=== PATIENT | male | born 1950 | race Caucasian/White ===

== ENCOUNTER 2020-04-12 14:24 | Inpatient (IN) | payer MEDICARE, OTHER ==
[2020-04-12] MEDS ORDERED: SODIUM CHLORIDE 0.9% 500 ML 500 ML IV STA (14:52)
[2020-04-12 15:05] LABS: Basophils # (A) 0.2 k/uL (0-0.2); Basophils % (A) 1 %; Eosinophils # (A) 0.1 k/uL (0-0.7); Eosinophils % (A) 1 %; HGB 17.9 gm/dL (13.0-17.5); Lymphocytes # (A) 4.1 k/uL (1.0-4.8); Lymphocytes % (A) 31 %; MCH 31.5 pg (25.0-35.0); MCHC 32.5 g/dL (31.0-37.0); MCV 96.9 fL (80.0-100.0); Monocytes # (A) 0.8 k/uL (0-1.0); Monocytes % (A) 6 %; Neutrophils # (A) 7.9 k/uL (1.3-7.7); Neutrophils % (A) 59 %; Platelet Count 233 k/uL (150-450); RBC 5.68 m/uL (4.30-5.90); RDW 14.3 % (11.5-15.5); WBC 13.3 k/uL (3.8-10.6)
[2020-04-12] MEDS ORDERED: SODIUM CHLORIDE 0.9% 1,000 ML IV STA (15:07)
--- NOTE | 2020-04-12 15:09 | ED ---
General Adult HPI - General Chief complaint: Nausea/Vomiting/Diarrhea Stated complaint: NVD Time Seen by Provider: 04/12/20 14:35 Source: patient, Caregiver Mode of arrival: wheelchair Limitations: no limitations - History of Present Illness Initial comments: Dictation was produced using [employer] dictation software. please excuse any gra mmatical, word or spelling errors. This patient was cared for during a federal and state declared state of emergency secondary to Covid 19 Chief Complaint: 69-year-old male brought in from [facility] for poor appetite, lethargy History of Present Illness: 69-year-old male who has past nuchal history of diabetes, dyslipidemia and hypertension. 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 Over the last 2-3 days patient has been worsening weakness, lethargy and refusing to take his medications. He is very poor appetite. He did complain of a couple of occasions of abdominal pain. Patient is a poor historian at this time however beauty operator apprentice reports that his usual baseline is interactive with meaningful conversation. When asked how he feels patient reports that he feels okay. The ROS documented in this emergency department record has been reviewed and confirmed by me. Those systems with pertinent positive or negative responses have been documented in the HPI. All other systems are other negative and/or noncontributory. PHYSICAL EXAM: General Impression: Alert and oriented x3, not in acute distress HEENT: Normocephalic atraumatic, extra-ocular movements intact, pupils equal and reactive to light bilaterally, dry mucous membranes Cardiovascular: tachycardia Chest: Able to complete full sentences, no retractions, no tachypnea, bilateral breath sounds that are clear Abdomen: abdomen soft, non-tender, non-distended, no organomegaly Musculoskeletal: Pulses present and equal in all extremities, no peripheral edema Motor: no focal deficits noted Neurological: CN II-XII grossly intact, no focal motor or sensory deficits noted Skin: Intact with no visualized rashes ED course: 69-year-old male presents today for poor appetite, nausea, vomiting, lethargy vital signs upon arrival shows heart rate of 130, rest of vital signs within acceptable limits. EKG shows heart rate 125. EKG shows sinus tachycardia, with ST depressions. KUB x-ray was performed showing no acute processes. Laboratory evaluation obtained. Leukocytosis of 13.3. Rest of CBC is unremarkable. Metabolic panel shows sodium of 148, glucose of 508. Elevated renal markers with a creatinine of 1.5 to and a BUN of 44. Lactic acidosis 3.1. Magnesium 2.4.Urinalysis was obtained showing no leukocyte in the urine. There is 4+ glucose, 2+ protein and 1+ ketones. Repeat lactic acid level was 1.8 after fluid administration. Consider patient's to be of symptoms and electrolyte abnormalities will have patient admitted for fluid hydration and medical monitoring. Case is discussed with Dr. Veloz who is willing to accept patients care. EKG interpretation: Ventricular rate 125, sinus tachycardia,. 142, QRS 80, QTc 464. No MT prolongation, no QTC prolongation. ST depressions in the high lateral leads - Related Data Home Medications Medication Instructions Recorded Confirmed Ammonium Lactate Cream [Lac-Hydrin 1 applic TOPICAL DAILY@119904/12/20 04/12/20 12% Cream] Artificial Tears-Hypromellose 1 - 2 drops BOTH EYES TID PRN 04/12/20 04/12/20 [Artificial Tear Drops] Aspirin EC [Ecotrin Low Dose] 81 mg PO DAILY@79904/12/20 04/12/20 Atorvastatin Calcium [Lipitor] 20 mg PO HS@199904/12/20 04/12/20 Carbidopa/Levodopa [Carbidopa-Levo 1 tab SUBLINGUAL BID@799,199904/12/20 04/12/20 25-250 mg Odt] Citalopram Hydrobromide [CeleXA] 20 mg PO DAILY@79904/12/20 04/12/20 Clotrimazole Topical Soln [Mycelex 2 drops TOPICAL HS@199904/12/20 04/12/20 Topical Soln] Cyanocobalamin (Vitamin B-12) 1,000 mcg PO DAILY@79904/12/20 04/12/20 [Vitamin B-12] Divalproex ER [Depakote ER] 1,000 mg PO BID@799,199904/12/20 04/12/20 Eucerin Cream 1 applic TOPICAL HS@199904/12/20 04/12/20 Furosemide [Lasix] 20 mg PO DAILY@1700 04/12/20 04/12/20 Furosemide [Lasix] 40 mg PO DAILY@79904/12/20 04/12/20 Gabapentin [Neurontin] 300 mg PO BID@0800,199904/12/20 04/12/20 HYDROcodone/APAP 5-325MG [[place] 1 tab PO TID PRN 04/12/20 04/12/20 5-325] HYDROcodone/APAP 5-325MG [[place] 1 tab PO TID@0800,1400,199904/12/20 04/12/20 5-325] Insulin Aspart Protam & Aspart 10 unit SQ BID@799,199904/12/20 04/12/20 [NovoLOG MIX 70-30 Flexpen] Ipratropium-Albuterol Nebulize 3 ml INHALATION RT-TID PRN 04/12/20 04/12/20 [Duoneb 0.5 mg-3 mg/3 ml Soln] LORazepam [Ativan] 0.5 mg PO TID@0800,1400,199904/12/20 04/12/20 Latanoprost/Pf [Latanoprost 0.005% 1 drop BOTH EYES HS@199904/12/20 04/12/20 Eye Drop] Loratadine [Claritin] 10 mg PO HS@199904/12/20 04/12/20 Multivitamins, Thera [Multivitamin 1 tab PO DAILY@79904/12/20 04/12/20 (formulary)] Naproxen [Naprosyn] 500 mg PO BID PRN 04/12/20 04/12/20 Pantoprazole [Protonix] 40 mg PO DAILY@79904/12/20 04/12/20 Prochlorperazine [Compazine] 10 mg PO BID PRN MDD 30-45MIN 04/12/20 04/12/20 PRIOR TO MEALS Sennosides/Docusate Sodium [Senna 2 tab PO HS@1999 PRN 04/12/20 04/12/20 Plus 8.6-50 mg Softgel] Sertraline HCl [Zoloft] 75 mg PO DAILY@79904/12/20 04/12/20 Sodium Chloride [Saline Nasal 1 spray EA NOSTRIL BID@0800,199904/12/20 04/12/20 [place]] Tamsulosin HCl [Flomax] 0.4 mg PO DAILY@79904/12/20 04/12/20 amLODIPine [Norvasc] 2.5 mg PO DAILY@79904/12/20 04/12/20 amantadine HCL [Amantadine] 100 mg PO DAILY@79904/12/20 04/12/20 glipiZIDE XL [Glucotrol Xl] 10 mg PO HS@199904/12/20 04/12/20 guaiFENesin [guaiFENesin Oral 200 mg PO Q4H PRN 04/12/20 04/12/20 Solution] metFORMIN HCL [Glucophage] 1,000 mg PO BID@799,199904/12/20 04/12/20 Allergies Allergy/AdvReac Type Severity Reaction Status Date / Time piperacillin [From Zosyn] Allergy Nausea & Verified 04/12/20 16:36 Vomiting tazobactam [From Zosyn] Allergy Nausea & Verified 04/12/20 16:36 Vomiting Review of Systems ROS Statement: Those systems with pertinent positive or pertinent negative responses have been documented in the HPI. ROS Other: All systems not noted in ROS Statement are negative. Past Medical History Past Medical History: Diabetes Mellitus, GERD/Reflux, Hyperlipidemia, Hypertension Additional Past Medical History / Comment(s): closed head injury, History of Any Multi-Drug Resistant Organisms: None Reported Past Surgical History: Unable to Obtain Smoking Status: Never smoker Past Alcohol Use History: None Reported Past Drug Use History: None Reported General Exam Limitations: no limitations Course Vital Signs 04/12/20 04/12/20 14:26 17:31 Temperature 97.6 F Pulse Rate 130 117 H Respiratory 18 20 Rate Blood Pressure 169/106 181/133 O2 Sat by Pulse 97 97 Oximetry Medical Decision Making - Lab Data Result diagrams: 04/12/20 14:54 04/12/20 14:54 Lab Results 04/12/20 04/12/20 04/12/20 Range/Units 14:54 14:54 14:54 WBC 13.3 H (3.8-10.6) k/uL RBC 5.68 (4.30-5.90) m/uL Hgb 17.9 H (13.0-17.5) gm/dL Hct 55.1 H (39.0-53.0) % MCV 96.9 (80.0-100.0) fL MCH 31.5 (25.0-35.0) pg MCHC 32.5 (31.0-37.0) g/dL RDW 14.3 (11.5-15.5) % Plt Count 233 (150-450) k/uL Neutrophils % 59 % Lymphocytes % 31 % Monocytes % 6 % Eosinophils % 1 % Basophils % 1 % Neutrophils # 7.9 H (1.3-7.7) k/uL Lymphocytes # 4.1 (1.0-4.8) k/uL Monocytes # 0.8 (0-1.0) k/uL Eosinophils # 0.1 (0-0.7) k/uL Basophils # 0.2 (0-0.2) k/uL Sodium 148 H (137-145) mmol/L Potassium 4.2 (3.5-5.1) mmol/L Chloride 105 (98-107) mmol/L Carbon Dioxide 28 (22-30) mmol/L Anion Gap 15 mmol/L BUN 44 H (9-20) mg/dL Creatinine 1.52 H (0.66-1.25) mg/dL Est GFR (CKD-EPI)AfAm 54 (>60 ml/min/1.73 sqM) Est GFR (CKD-EPI)NonAf 46 (>60 ml/min/1.73 sqM) Glucose 508 H* (74-99) mg/dL POC Glucose (mg/dL) (75-99) mg/dL POC Glu Data Processing Manager ID Lactic Ac Sepsis Rflx Plasma Lactic Acid Irineo 3.1 H* (0.7-2.0) mmol/L Calcium 10.3 H (8.4-10.2) mg/dL Magnesium 2.4 H (1.6-2.3) mg/dL Total Bilirubin 0.8 (0.2-1.3) mg/dL AST 21 (17-59) U/L ALT 15 (4-49) U/L Alkaline Phosphatase 124 (38-126) U/L Total Protein 8.3 H (6.3-8.2) g/dL Albumin 4.4 (3.5-5.0) g/dL Lipase 118 (23-300) U/L Urine Color Urine Appearance (Clear) Urine pH (5.0-8.0) Ur Specific [place] (1.001-1.035) Urine Protein (Negative) Urine Glucose (UA) (Negative) Urine Ketones (Negative) Urine Blood (Negative) Urine Nitrite (Negative) Urine Bilirubin (Negative) Urine Urobilinogen (<2.0) mg/dL Ur Leukocyte Esterase (Negative) Urine RBC (0-5) /hpf Urine WBC (0-5) /hpf Urine Bacteria (None) /hpf Urine Mucus (None) /hpf 04/12/20 04/12/20 04/12/20 Range/Units 15:03 15:19 16:41 WBC (3.8-10.6) k/uL RBC (4.30-5.90) m/uL Hgb (13.0-17.5) gm/dL Hct (39.0-53.0) % MCV (80.0-100.0) fL MCH (25.0-35.0) pg MCHC (31.0-37.0) g/dL RDW (11.5-15.5) % Plt Count (150-450) k/uL Neutrophils % % Lymphocytes % % Monocytes % % Eosinophils % % Basophils % % Neutrophils # (1.3-7.7) k/uL Lymphocytes # (1.0-4.8) k/uL Monocytes # (0-1.0) k/uL Eosinophils # (0-0.7) k/uL Basophils # (0-0.2) k/uL Sodium (137-145) mmol/L Potassium (3.5-5.1) mmol/L Chloride (98-107) mmol/L Carbon Dioxide (22-30) mmol/L Anion Gap mmol/L BUN (9-20) mg/dL Creatinine (0.66-1.25) mg/dL Est GFR (CKD-EPI)AfAm (>60 ml/min/1.73 sqM) Est GFR (CKD-EPI)NonAf (>60 ml/min/1.73 sqM) Glucose (74-99) mg/dL POC Glucose (mg/dL) 550 H (75-99) mg/dL POC Glu Data Processing Manager ID [place], Lisa Lactic Ac Sepsis Rflx Y Plasma Lactic Acid Irineo (0.7-2.0) mmol/L Calcium (8.4-10.2) mg/dL Magnesium (1.6-2.3) mg/dL Total Bilirubin (0.2-1.3) mg/dL AST (17-59) U/L ALT (4-49) U/L Alkaline Phosphatase (38-126) U/L Total Protein (6.3-8.2) g/dL Albumin (3.5-5.0) g/dL Lipase (23-300) U/L Urine Color Yellow Urine Appearance Clear (Clear) Urine pH 6.0 (5.0-8.0) Ur Specific [place] 1.020 (1.001-1.035) Urine Protein 2+ H (Negative) Urine Glucose (UA) 4+ H (Negative) Urine Ketones 1+ H (Negative) Urine Blood Small H (Negative) Urine Nitrite Negative (Negative) Urine Bilirubin Negative (Negative) Urine Urobilinogen <2.0 (<2.0) mg/dL Ur Leukocyte Esterase Negative (Negative) Urine RBC 1 (0-5) /hpf Urine WBC 1 (0-5) /hpf Urine Bacteria Rare H (None) /hpf Urine Mucus Rare H (None) /hpf 04/12/20 04/12/20 Range/Units 17:36 17:37 WBC (3.8-10.6) k/uL RBC (4.30-5.90) m/uL Hgb (13.0-17.5) gm/dL Hct (39.0-53.0) % MCV (80.0-100.0) fL MCH (25.0-35.0) pg MCHC (31.0-37.0) g/dL RDW (11.5-15.5) % Plt Count (150-450) k/uL Neutrophils % % Lymphocytes % % Monocytes % % Eosinophils % % Basophils % % Neutrophils # (1.3-7.7) k/uL Lymphocytes # (1.0-4.8) k/uL Monocytes # (0-1.0) k/uL Eosinophils # (0-0.7) k/uL Basophils # (0-0.2) k/uL Sodium (137-145) mmol/L Potassium (3.5-5.1) mmol/L Chloride (98-107) mmol/L Carbon Dioxide (22-30) mmol/L Anion Gap mmol/L BUN (9-20) mg/dL Creatinine (0.66-1.25) mg/dL Est GFR (CKD-EPI)AfAm (>60 ml/min/1.73 sqM) Est GFR (CKD-EPI)NonAf (>60 ml/min/1.73 sqM) Glucose (74-99) mg/dL POC Glucose (mg/dL) 410 H (75-99) mg/dL POC Glu Data Processing Manager ID Lisa Bledsoe Lactic Ac Sepsis Rflx Plasma Lactic Acid Irineo 1.8 (0.7-2.0) mmol/L Calcium (8.4-10.2) mg/dL Magnesium (1.6-2.3) mg/dL Total Bilirubin (0.2-1.3) mg/dL AST (17-59) U/L ALT (4-49) U/L Alkaline Phosphatase (38-126) U/L Total Protein (6.3-8.2) g/dL Albumin (3.5-5.0) g/dL Lipase (23-300) U/L Urine Color Urine Appearance (Clear) Urine pH (5.0-8.0) Ur Specific [place] (1.001-1.035) Urine Protein (Negative) Urine Glucose (UA) (Negative) Urine Ketones (Negative) Urine Blood (Negative) Urine Nitrite (Negative) Urine Bilirubin (Negative) Urine Urobilinogen (<2.0) mg/dL Ur Leukocyte Esterase (Negative) Urine RBC (0-5) /hpf Urine WBC (0-5) /hpf Urine Bacteria (None) /hpf Urine Mucus (None) /hpf Disposition Clinical Impression: Weakness, Dehydration Disposition: ADMITTED IP TO THIS [facility] Condition: Fair Referrals: Jay Salazar MD [Primary Care Provider] - 1-2 days Decision Time: 18:02
[2020-04-12 15:13] LABS: HCT 55.1 % (39.0-53.0)
[2020-04-12 15:16] LABS: Albumin 4.4 g/dL (3.5-5.0); Calcium 10.3 mg/dL (8.4-10.2); Magnesium 2.4 mg/dL (1.6-2.3); Potassium 4.2 mmol/L (3.5-5.1); Total Bilirubin 0.8 mg/dL (0.2-1.3); Total Protein 8.3 g/dL (6.3-8.2)
[2020-04-12 16:13] LABS: Glucose,Whole Blood 550 mg/dL (75-99)
--- NOTE | 2020-04-12 16:15 | XR ---
KUB HISTORY: Abdominal pain Frontal KUB submitted on 3 images Correlation to prior KUB 02/04/2019, CT 10/23/2017 There is no evident pneumoperitoneum or bowel obstruction. Lung bases are clear. There is an oval umer cification in the left upper quadrant as on prior exam and is stable and benign. Degenerative disc ch anges are present in the visualized spine. impression: Nonobstructive bowel gas pattern.
[2020-04-12 17:06] LABS: Appearance,Urine Clear (Clear); Bacteria,Urine Rare /hpf; Bilirubin,Urine Negative (Negative); Blood,Urine Small (Negative); Color,Urine Yellow; Glucose,Urine (UA) 4+ (Negative); Ketones,Urine 1+ (Negative); Leukocyte Esterase,Urine Negative (Negative); Mucus,Urine Rare /hpf; Nitrite,Urine Negative (Negative); Protein,Urine 2+ (Negative); RBC,Urine 1 /hpf (0-5); Urobilinogen,Urine <2.0 mg/dL (<2.0); WBC,Urine 1 /hpf (0-5)
[2020-04-12 17:39] LABS: Glucose,Whole Blood 410 mg/dL (75-99)
[2020-04-12] MEDS ORDERED: NALOXONE 0.4 MG/ML 1 ML VIAL IV PRN (17:59)
[2020-04-12] MEDS ORDERED: ONDANSETRON 4 MG/2 ML VIAL IVP PRN (17:59)
[2020-04-12] MEDS ORDERED: SODIUM CHLORIDE 0.9% 1,000 ML IV SCH (18:00)
[2020-04-12] MEDS ORDERED: INSULIN REGULAR 100 UNIT/ML VIAL IV ONE (19:23)
[2020-04-12] MEDS ORDERED: LABETALOL 5 MG/ML VIAL MDV IVP STA ×2 (19:35→20:09)
[2020-04-12 19:48] LABS: Glucose,Whole Blood 413 mg/dL (75-99)
[2020-04-12] MEDS ORDERED: NAPROXEN 250 MG TAB PO PRN (20:19)
[2020-04-12] MEDS ORDERED: SENNOSIDES-DOCUSATE SODIUM 1 EACH TAB PO PRN (20:19)
[2020-04-12] MEDS ORDERED: HYDROcodone/APAP 5-325MG 1 EACH TAB PO PRN (20:19)
[2020-04-12] MEDS ORDERED: guaiFENesin SYRUP 100MG/5ML 200 MG/10 ML CUP PO PRN (20:19)
[2020-04-12] MEDS ORDERED: ARTIFICIAL TEARS-HYPROMELLOSE DROPS 15 ML BTL BOTH EYES PRN (20:19)
[2020-04-12] MEDS ORDERED: PROCHLORPERAZINE 10 MG TAB PO PRN (20:19)
[2020-04-12] MEDS ORDERED: IPRATROPIUM-ALBUTEROL 3 ML NEB INHALATION PRN (20:19)
[2020-04-12] MEDS ORDERED: cloNIDine 0.1 MG/24HR PATCH TRANSDERM SCH (21:00)
[2020-04-12] MEDS ORDERED: INSULIN ASPART (NovoLOG) 100 UNIT/ML VIAL SQ SCH (21:00)
[2020-04-12 21:01] LABS: Glucose,Whole Blood 361 mg/dL (75-99)
[2020-04-12 21:46] LABS: Glucose,Whole Blood 304 mg/dL (75-99)
--- NOTE | 2020-04-12 21:46 | P.HPIM ---
History of Present Illness H&P Date: 04/12/20 Chief Complaint: Weakness tiredness History of presenting complaint: This is a 69-year-old patient who follows with visiting physicians Dr. Donovan. No history of diabetes, GERD, hypertension, hyperlipidemia, post head injury. History is mainly obtained from the ER staff including the physician. Himself is not able to give me much of her history. Patient lives at [facility]. In the ER the rice cleaning machine tender not given the history. Last 2 or 3 days patient been worsening weakness lethargic refusing to take his medications. Poor appetite. He had questionable abdominal pain. At the baseline patient is able to carry out some meaningful conversation. Blood pressure running high in the ER. Not able to take his medications. Review of systems cannot be done as patient unable to come talk Past medical history to include: Diabetes, GERD, hypertension, hyperlipidemia, closed head injury. Social history: No history of smoking or alcohol. Currently at [facility] Family history: Patient unable to tell Physical examination: VITAL SIGNS: 97.6, 1:30, 18, 160 04/11/2006, 97% room air GENERAL: [BMI 24.4, laying in bed, eyes closed slightly shaking. EYES: Pupils equal. Conjunctiva normal. HEENT: External appearance of nose and ears normal, oral cavity dry. NECK: JVD not raised; masses not palpable. HEART: First and second heart sounds are normal; no edema. LUNGS: Respiratory rate normal; clear to auscultation. ABDOMEN: Soft, nontender, liver spleen not palpable, no masses palpable. PSYCH: Unable to assess as patient not really answering questionsl. NEUROLOGICAL: [Cranial nerves grossly intact; no facial asymmetry, moving his limbs EXTREMITIES: Dysmorphic nails, with poor circulation absent dorsalis pedis LYMPHATICS: No lymph nodes palpable in the axilla and neck INVESTIGATIONS, reviewed in the clinical context: White count 13.3 hemoglobin 7.9 platelets 233 potassium 4.2 sodium 148 bun 44 creatinine 1.5 to glucose 508 Lactic acid 3.1 calcium 10.3, anion gap 15 Assessment: -Acute metabolic encephalopathy possibly from DKA. -Possible DKA. Anion gap is 15. Blood glucoses and 500. Could be nonketotic hyperosmolar hyperglycemia. 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 Also the insulin drip. Catapres patch. Ordered serum acetone. Aspiration precautions. Neuro checks. Lovenox for DVT prophylaxis. Also consult neurology. Past Medical History Past Medical History: Diabetes Mellitus, GERD/Reflux, Hyperlipidemia, Hy pertension Additional Past Medical History / Comment(s): closed head injury, History of Any Multi-Drug Resistant Organisms: None Reported Past Surgical History: Unable to Obtain Smoking Status: Never smoker Past Alcohol Use History: None Reported Past Drug Use History: None Reported Medications and Allergies Home Medications Medication Instructions Recorded Confirmed Type Ammonium Lactate Cream [Lac-Hydrin 1 applic TOPICAL DAILY@1200 04/12/20 04/12/20 History 12% Cream] Artificial Tears-Hypromellose 1 - 2 drops BOTH EYES TID PRN 04/12/20 04/12/20 History [Artificial Tear Drops] Aspirin EC [Ecotrin Low Dose] 81 mg PO DAILY@79904/12/20 04/12/20 History Atorvastatin Calcium [Lipitor] 20 mg PO HS@199904/12/20 04/12/20 History Carbidopa/Levodopa [Carbidopa-Levo 1 tab SUBLINGUAL BID@08,199904/12/20 04/12/20 History 25-250 mg Odt] Citalopram Hydrobromide [CeleXA] 20 mg PO DAILY@79904/12/20 04/12/20 History Clotrimazole Topical Soln [Mycelex 2 drops TOPICAL HS@199904/12/20 04/12/20 History Topical Soln] Cyanocobalamin (Vitamin B-12) 1,000 mcg PO DAILY@79904/12/20 04/12/20 History [Vitamin B-12] Divalproex ER [Depakote ER] 1,000 mg PO BID@08,199904/12/20 04/12/20 History Eucerin Cream 1 applic TOPICAL HS@199904/12/20 04/12/20 History Furosemide [Lasix] 20 mg PO DAILY@1700 04/12/20 04/12/20 History Furosemide [Lasix] 40 mg PO DAILY@79904/12/20 04/12/20 History Gabapentin [Neurontin] 300 mg PO BID@08,199904/12/20 04/12/20 History HYDROcodone/APAP 5-325MG [[place] 1 tab PO TID PRN 04/12/20 04/12/20 History 5-325] HYDROcodone/APAP 5-325MG [[place] 1 tab PO TID@0800,1400,199904/12/20 04/12/20 History 5-325] Insulin Aspart Protam & Aspart 10 unit SQ BID@0800,199904/12/20 04/12/20 History [NovoLOG MIX 70-30 Flexpen] Ipratropium-Albuterol Nebulize 3 ml INHALATION RT-TID PRN 04/12/20 04/12/20 His tory [Duoneb 0.5 mg-3 mg/3 ml Soln] LORazepam [Ativan] 0.5 mg PO TID@0800,1400,199904/12/20 04/12/20 History Latanoprost/Pf [Latanoprost 0.005% 1 drop BOTH EYES HS@199904/12/20 04/12/20 History Eye Drop] Loratadine [Claritin] 10 mg PO HS@199904/12/20 04/12/20 History Multivitamins, Thera [Multivitamin 1 tab PO DAILY@79904/12/20 04/12/20 History (formulary)] Naproxen [Naprosyn] 500 mg PO BID PRN 04/12/20 04/12/20 History Pantoprazole [Protonix] 40 mg PO DAILY@79904/12/20 04/12/20 History Prochlorperazine [Compazine] 10 mg PO BID PRN MDD 30-45MIN 04/12/20 04/12/20 History PRIOR TO MEALS Sennosides/Docusate Sodium [Senna 2 tab PO HS@1999 PRN 04/12/20 04/12/20 History Plus 8.6-50 mg Softgel] Sertraline HCl [Zoloft] 75 mg PO DAILY@79904/12/20 04/12/20 History Sodium Chloride [Saline Nasal 1 spray EA NOSTRIL BID@0800,199904/12/20 04/12/20 History [place]] Tamsulosin HCl [Flomax] 0.4 mg PO DAILY@79904/12/20 04/12/20 History amLODIPine [Norvasc] 2.5 mg PO DAILY@79904/12/20 04/12/20 History amantadine HCL [Amantadine] 100 mg PO DAILY@79904/12/20 04/12/20 History glipiZIDE XL [Glucotrol Xl] 10 mg PO HS@199904/12/20 04/12/20 History guaiFENesin [guaiFENesin Oral 200 mg PO Q4H PRN 04/12/20 04/12/20 History Solution] metFORMIN HCL [Glucophage] 1,000 mg PO BID@799,199904/12/20 04/12/20 History Allergies Allergy/AdvReac Type Severity Reaction Status Date / Time piperacillin [From Zosyn] Allergy Nausea & Verified 04/12/20 16:36 Vomiting tazobactam [From Zosyn] Allergy Nausea & Verified 04/12/20 16:36 Vomiting Physical Exam Vitals: Vital Signs Temp Pulse Resp BP Pulse Ox 04/12/20 21:00 16 155/108 04/12/20 20:40 106 H 155/105 04/12/20 20:00 107 H 18 164/122 04/12/20 19:34 98.3 F 123 H 18 187/127 96 04/12/20 18:46 61 16 126/79 99 04/12/20 17:31 117 H 20 181/133 97 04/12/20 14:26 97.6 F 130 18 169/106 97 Intake and Output 04/12/20 04/12/20 04/12/20 06:59 14:59 22:59 Other: Weight 77.111 kg Results CBC & Chem 7: 04/12/20 14:54 04/12/20 14:54 Labs: Abnormal Lab Results - Last 24 Hours (Table) 04/12/20 04/12/20 04/12/20 Range/Units 14:54 14:54 14:54 WBC 13.3 H (3.8-10.6) k/uL Hgb 17.9 H (13.0-17.5) gm/dL Hct 55.1 H (39.0-53.0) % Neutrophils # 7.9 H (1.3-7.7) k/uL Sodium 148 H (137-145) mmol/L BUN 44 H (9-20) mg/dL Creatinine 1.52 H (0.66-1.25) mg/dL Glucose 508 H* (74-99) mg/dL POC Glucose (mg/dL) (75-99) mg/dL Plasma Lactic Acid Irineo 3.1 H* (0.7-2.0) mmol/L Calcium 10.3 H (8.4-10.2) mg/dL Magnesium 2.4 H (1.6-2.3) mg/dL Total Protein 8.3 H (6.3-8.2) g/dL Urine Protein (Negative) Urine Glucose (UA) (Negative) Urine Ketones (Negative) Urine Blood (Negative) Urine Bacteria (None) /hpf Urine Mucus (None) /hpf 04/12/20 04/12/20 04/12/20 Range/Units 15:03 16:41 17:36 WBC (3.8-10.6) k/uL Hgb (13.0-17.5) gm/dL Hct (39.0-53.0) % Neutrophils # (1.3-7.7) k/uL Sodium (137-145) mmol/L BUN (9-20) mg/dL Creatinine (0.66-1.25) mg/dL Glucose (74-99) mg/dL POC Glucose (mg/dL) 550 H 410 H (75-99) mg/dL Plasma Lactic Acid Irineo (0.7-2.0) mmol/L Calcium (8.4-10.2) mg/dL Magnesium (1.6-2.3) mg/dL Total Protein (6.3-8.2) g/dL Urine Protein 2+ H (Negative) Urine Glucose (UA) 4+ H (Negative) Urine Ketones 1+ H (Negative) Urine Blood Small H (Negative) Urine Bacteria Rare H (None) /hpf Urine Mucus Rare H (None) /hpf 04/12/20 04/12/20 Range/Units 19:45 21:00 WBC (3.8-10.6) k/uL Hgb (13.0-17.5) gm/dL Hct (39.0-53.0) % Neutrophils # (1.3-7.7) k/uL Sodium (137-145) mmol/L BUN (9-20) mg/dL Creatinine (0.66-1.25) mg/dL Glucose (74-99) mg/dL POC Glucose (mg/dL) 413 H 361 H (75-99) mg/dL Plasma Lactic Acid Irineo (0.7-2.0) mmol/L Calcium (8.4-10.2) mg/dL Magnesium (1.6-2.3) mg/dL Total Protein (6.3-8.2) g/dL Urine Protein (Negative) Urine Glucose (UA) (Negative) Urine Ketones (Negative) Urine Blood (Negative) Urine Bacteria (None) /hpf Urine Mucus (None) /hpf
[2020-04-12] MEDS ORDERED: INSULIN REGULAR 100 UNIT in SODIUM CHLORIDE 0.9% 100 ML IV SCH (22:30)
[2020-04-12 22:46] LABS: Glucose,Whole Blood 340 mg/dL (75-99)
[2020-04-12] MEDS: ENOXAPARIN 40 MG/0.4 ML SYRINGE SQ SCH (23:06)
[2020-04-12] MEDS: SODIUM CHLORIDE 0.9% 1,000 ML IV SCH (23:06)
[2020-04-13 00:58] LABS: Glucose,Whole Blood 247 mg/dL (75-99)
[2020-04-13 02:50] LABS: Glucose,Whole Blood 140 mg/dL (75-99)
[2020-04-13 03:58] LABS: Glucose,Whole Blood 131 mg/dL (75-99)
[2020-04-13] MEDS: SODIUM CHLORIDE 0.9% 1,000 ML IV SCH ×2 (04:13→13:16)
[2020-04-13 04:59] LABS: Glucose,Whole Blood 139 mg/dL (75-99)
[2020-04-13 06:10] LABS: Glucose,Whole Blood 176 mg/dL (75-99)
[2020-04-13] MEDS: CARBIDOPA-LEVODOPA 25-250 MG 1 EACH TAB PO SCH ×2 (07:34→20:32)
[2020-04-13] MEDS: amLODIPine 2.5 MG TAB PO SCH (07:34)
[2020-04-13] MEDS: CITALOPRAM HYDROBROMIDE 20 MG TAB PO SCH (07:34)
[2020-04-13] MEDS: CYANOCOBALAMIN 500 MCG TAB PO SCH (07:34)
[2020-04-13] MEDS: ASPIRIN 81 MG PO SCH (07:34)
[2020-04-13] MEDS: PANTOPRAZOLE 40 MG/10 ML VIAL IV SCH (07:35)
[2020-04-13] MEDS: TAMSULOSIN 0.4 MG CAP.ER.24H PO SCH (07:35)
[2020-04-13] MEDS: GABAPENTIN 300 MG CAP PO SCH ×2 (07:35→20:31)
[2020-04-13] MEDS: SERTRALINE 25 MG TAB PO SCH (07:35)
[2020-04-13] MEDS: DIVALPROEX ER 500 MG TAB.ER.24H PO SCH ×2 (07:35→20:32)
[2020-04-13] MEDS: metFORMIN 500 MG TAB PO SCH ×2 (07:35→20:31)
[2020-04-13] MEDS: MULTIVITAMINS, THERA 1 EACH TAB PO SCH (07:35)
[2020-04-13] MEDS: SODIUM CHLORIDE 0.65% NASAL SPRAY 44 ML BTL INTRANASAL SCH ×2 (07:51→20:34)
[2020-04-13 07:58] LABS: Calcium 9.6 mg/dL (8.4-10.2); Potassium 3.8 mmol/L (3.5-5.1)
[2020-04-13 08:08] LABS: Glucose,Whole Blood 277 mg/dL (75-99)
[2020-04-13 10:01] LABS: Glucose,Whole Blood 196 mg/dL (75-99)
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
[2020-04-13 12:09] LABS: Glucose,Whole Blood 200 mg/dL (75-99)
[2020-04-13] MEDS ORDERED: INSULIN NPH 300 UNIT/3 ML VIAL SQ SCH (13:15)
[2020-04-13] MEDS: SODIUM CHLORIDE 0.45% 1,000 ML IV SCH ×2 (13:21→21:39)
[2020-04-13] MEDS: AMMONIUM LACTATE 12% CREAM 140 GM TUBE TOPICAL SCH (13:21)
[2020-04-13 14:12] LABS: Glucose,Whole Blood 182 mg/dL (75-99)
[2020-04-13 16:11] LABS: Calcium 9.4 mg/dL (8.4-10.2); Potassium 4.3 mmol/L (3.5-5.1)
[2020-04-13 17:00] LABS: Glucose,Whole Blood 233 mg/dL (75-99)
[2020-04-13] MEDS: INSULIN ASPART (NovoLOG) 100 UNIT/ML VIAL SQ SCH ×2 (17:06→20:32)
--- NOTE | 2020-04-13 17:19 | P.PN ---
Progress Note - Text Progress Note Date: 04/13/20 Chief Complaint: Weakness tiredness History of presenting complaint: This is a 69-year-old patient who follows with visiting physicians Dr. Donovan. No history of diabetes, GERD, hypertension, hyperlipidemia, post head injury. History is mainly obtained from the ER staff including the physician. Himself is not able to give me much of her history. Patient lives at [facility]. In the ER the limnologist not given the history. Last 2 or 3 days patient been worsening weakness lethargic refusing to take his medications. Poor appetite. He had questionable abdominal pain. At the baseline patient is able to carry out some meaningful conversation. Blood pressure running high in the ER. Not able to take his medications. admitted with acute metabolic encephalopathy,DKA hypertensive urgency from not able to take his medications, possible Parkinson's disease flareup, not able to take his medications.-patient had been insulin drip IV fluids. Today-patient didn't tolerate some breakfast this morning. More awake. Tired- able to take his medications this morning Review of systems unable to be done as patient other tired Active Medications Hydrocodone Bitart/Acetaminophen ([place] 5-325) 1 each PO TID PRN PRN Reason: Pain Albuterol/Ipratropium (Duoneb 0.5 Mg-3 Mg/3 Ml Soln) 3 ml INHALATION RT-TID PRN PRN Reason: Shortness Of Breath Amantadine HCl (Symmetrel) 100 mg PO DAILY@0800 [facility] Last Admin: 04/13/20 07:33 Dose: 100 mg Documented by: Amlodipine Besylate (Norvasc) 2.5 mg PO DAILY@08 [facility] Last Admin: 04/13/20 07:34 Dose: 2.5 mg Documented by: Artificial Tears (Artificial Tear Drops) 1 - 2 drops BOTH EYES TID PRN PRN Reason: RED EYES Aspirin (Aspirin) 81 mg PO DAILY@08 [facility] Last Admin: 04/13/20 07:34 Dose: 81 mg Documented by: Atorvastatin Calcium (Lipitor) 20 mg PO HS@1999 [facility] Carbidopa/Levodopa (Sinemet 25-250) 1 each PO BID@799,1999 [facility] Last Admin: 04/13/20 07:34 Dose: 1 each Documented by: Citalopram Hydrobromide (Celexa) 20 mg PO DAILY@0800 [facility] Last Admin: 04/13/20 07:34 Dose: 20 mg Documented by: Clonidine HCl (Catapres-Tts 0.1mg Patch) 1 patch TRANSDERM Q7D [facility] Last Admin: 04/12/20 21:14 Dose: 1 patch Documented by: Clotrimazole (Lotrimin Cream) 1 applic TOPICAL HS@1999 [facility] Cyanocobalamin (Vitamin B-12) 1,000 mcg PO DAILY@08 [facility] Last Admin: 04/13/20 07:34 Dose: 1,000 mcg Documented by: Divalproex Sodium (Depakote Er) 1,000 mg PO BID@ [facility] Last Admin: 04/13/20 07:35 Dose: 1,000 mg Documented by: Enoxaparin Sodium (Lovenox) 40 mg SQ 2100 [facility] Last Admin: 04/12/20 23:06 Dose: 40 mg Documented by: Gabapentin (Neurontin) 300 mg PO BID@ [facility] Last Admin: 04/13/20 07:35 Dose: 300 mg Documented by: Guaifenesin (Robitussin) 200 mg PO Q4H PRN PRN Reason: COUGH & CONGESTION Sodium Chloride (Saline 0.45%) 1,000 mls @ 100 mls/hr IV .Q10H [facility] Last Admin: 04/13/20 13:21 Dose: 100 mls/hr Documented by: Insulin Aspart (Novolog) 0 unit SQ [facility]; Protocol Insulin Detemir (Levemir) 16 unit SQ [facility] Lactic Acid (Ammonium Lactate) 1 applic TOPICAL DAILY@1200 [facility] Last Admin: 04/13/20 13:21 Dose: 1 applic Documented by: Latanoprost (Xalatan 0.005%) 1 drops BOTH EYES HS@1999 [facility] Metformin HCl (Glucophage) 1,000 mg PO BID@799,1999 [facility] Last Admin: 04/13/20 07:35 Dose: 1,000 mg Documented by: Multi-Ingred Cream/Lotion/Oil/Oint (Eucerin Cream) 1 applic TOPICAL HS@1999 [facility] Multivitamins (Theragran) 1 each PO DAILY@0800 [facility] Last Admin: 04/13/20 07:35 Dose: 1 each Documented by: Naloxone HCl (Narcan) 0.2 mg IV Q2M PRN PRN Reason: Opioid Reversal Ondansetron HCl (Zofran) 4 mg IVP Q8HR PRN PRN Reason: Nausea And Vomiting Last Admin: 04/13/20 04:05 Dose: 4 mg Documented by: Pantoprazole Sodium (Protonix) 40 mg IV DAILY [facility] Last Admin: 04/13/20 07:35 Dose: 40 mg Documented by: Prochlorperazine Maleate (Compazine) 10 mg PO BID PRN PRN Reason: Nausea Senna/Docusate Sodium (Senokot-S) 2 each PO HS@1999 PRN PRN Reason: Constipation Sertraline HCl (Zoloft) 75 mg PO DAILY@0800 [facility] Last Admin: 04/13/20 07:35 Dose: 75 mg Documented by: Sodium Chloride ([place]) 1 spray INTRANASAL BID@799,1999 [facility] Last Admin: 04/13/20 07:51 Dose: Not Given Documented by: Tamsulosin HCl (Flomax) 0.4 mg PO DAILY@0800 [facility] Last Admin: 04/13/20 07:35 Dose: 0.4 mg Documented by: Physical examination: VITAL SIGNS: 98.3, 112, 16, 172/113, 94% room air GENERAL: laying in bed, more comfortable today EYES: Pupils equal. Conjunctiva normal. HEENT: External appearance of nose and ears normal, oral cavity dry. NECK: JVD not raised; masses not palpable. HEART: First and second heart sounds are normal; no edema. LUNGS: Respiratory rate normal; clear to auscultation. ABDOMEN: Soft, nontender, liver spleen not palpable, no masses palpable. PSYCH: Unable to assess as patient tired NEUROLOGICAL: answering questions. EXTREMITIES: Dysmorphic nails, with poor circulation absent dorsalis pedis INVESTIGATIONS, reviewed in the clinical context: Sodium 153 potassium 4.3 bun 37 creatinine 1.41. Anion gap 6 White count 13.3 hemoglobin 7.9 platelets 233 potassium 4.2 sodium 148 bun 44 creatinine 1.5 to glucose 508 Lactic acid 3.1 calcium 10.3, anion gap 15 serum acetone positive Assessment: -Acute metabolic encephalopathy possibly from DKA.-improvement - DKA. -corrected -Diabetes mellitus type 2, uncontrolled with hyperglycemia -GERD -Hyperlipidemia -Hypertensive urgency from patient unable to bring take his medications -Possible Parkinson disorder with exacerbation from not able to taking his medications -Hypernatremia from free water deficit-new diagnosis -acute kidney injury, possibly ATN Plan: patient is started tolerate her diet. Discussed with the nurse. Maintain aspiration precautions with all feedings supervised. We'll change IV fluids to half saline. DC insulin drip. Put on long-acting with sliding scale. Discussed with neurology. Continue with medications. Patient able to tolerate his medications. Hold off oral hypoglycemic.repeat BMP in the evening in the morning.
[2020-04-13 20:19] LABS: Glucose,Whole Blood 347 mg/dL (75-99)
[2020-04-13] MEDS: ATORVASTATIN 20 MG TAB PO SCH (20:31)
[2020-04-13] MEDS: ENOXAPARIN 40 MG/0.4 ML SYRINGE SQ SCH (20:32)
[2020-04-13] MEDS: LATANOPROST 0.005% OPHTH DROPS 2.5 ML BTL BOTH EYES SCH (20:33)
[2020-04-13] MEDS: MINERAL OIL-WHITE PETROLATUM 120 GM JAR TOPICAL SCH (20:33)
[2020-04-13] MEDS: CLOTRIMAZOLE 1% CREAM 15 GM TUBE TOPICAL SCH (20:34)
[2020-04-13] MEDS ORDERED: INSULIN DETEMIR (LEVEMIR) 100 UNIT/ML SYR SQ SCH (21:00)
[2020-04-14 07:35] LABS: Glucose,Whole Blood 58 mg/dL (75-99)
[2020-04-14] MEDS: INSULIN ASPART (NovoLOG) 100 UNIT/ML VIAL SQ SCH ×4 (07:40→20:37)
[2020-04-14 07:53] LABS: Glucose,Whole Blood 110 mg/dL (75-99)
[2020-04-14] MEDS: amLODIPine 2.5 MG TAB PO SCH (07:56)
[2020-04-14] MEDS: ASPIRIN 81 MG PO SCH (07:56)
[2020-04-14] MEDS: PANTOPRAZOLE 40 MG/10 ML VIAL IV SCH (07:56)
[2020-04-14] MEDS: CARBIDOPA-LEVODOPA 25-250 MG 1 EACH TAB PO SCH ×2 (07:56→20:01)
[2020-04-14] MEDS: CYANOCOBALAMIN 500 MCG TAB PO SCH (07:56)
[2020-04-14] MEDS: MULTIVITAMINS, THERA 1 EACH TAB PO SCH (07:56)
[2020-04-14] MEDS: SERTRALINE 25 MG TAB PO SCH (07:56)
[2020-04-14] MEDS: DIVALPROEX ER 500 MG TAB.ER.24H PO SCH ×2 (07:56→20:01)
[2020-04-14] MEDS: TAMSULOSIN 0.4 MG CAP.ER.24H PO SCH (07:56)
[2020-04-14] MEDS: SODIUM CHLORIDE 0.45% 1,000 ML IV SCH ×2 (07:57→16:22)
[2020-04-14] MEDS: SODIUM CHLORIDE 0.65% NASAL SPRAY 44 ML BTL INTRANASAL SCH ×2 (07:57→20:02)
[2020-04-14] MEDS: GABAPENTIN 300 MG CAP PO SCH ×2 (07:57→20:01)
[2020-04-14] MEDS: metFORMIN 500 MG TAB PO SCH ×2 (07:57→20:01)
[2020-04-14] MEDS: CITALOPRAM HYDROBROMIDE 20 MG TAB PO SCH (07:57)
[2020-04-14] MEDS: AMMONIUM LACTATE 12% CREAM 140 GM TUBE TOPICAL SCH (07:58)
[2020-04-14 08:16] LABS: Calcium 9.4 mg/dL (8.4-10.2); Potassium 3.7 mmol/L (3.5-5.1)
[2020-04-14 11:33] LABS: Glucose,Whole Blood 205 mg/dL (75-99)
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
[2020-04-14 17:06] LABS: Glucose,Whole Blood 211 mg/dL (75-99)
[2020-04-14] MEDS: LATANOPROST 0.005% OPHTH DROPS 2.5 ML BTL BOTH EYES SCH (20:00)
[2020-04-14] MEDS: CLOTRIMAZOLE 1% CREAM 15 GM TUBE TOPICAL SCH (20:00)
[2020-04-14] MEDS: ATORVASTATIN 20 MG TAB PO SCH (20:01)
[2020-04-14] MEDS: MINERAL OIL-WHITE PETROLATUM 120 GM JAR TOPICAL SCH (20:02)
[2020-04-14 20:28] LABS: Glucose,Whole Blood 223 mg/dL (75-99)
[2020-04-14] MEDS: ENOXAPARIN 40 MG/0.4 ML SYRINGE SQ SCH (20:37)
--- NOTE | 2020-04-14 21:29 | P.PN ---
Progress Note - Text Progress Note Date: 04/14/20 Chief Complaint: Weakness tiredness History of presenting complaint: This is a 69-year-old patient who follows with visiting physicians Dr. Donovan. No history of diabetes, GERD, hypertension, hyperlipidemia, post head injury. History is mainly obtained from the ER staff including the physician. Himself is not able to give me much of her history. Patient lives at [facility]. In the ER the top dyeing machine tender not given the history. Last 2 or 3 days patient been worsening weakness lethargic refusing to take his medications. Poor appetite. He had questionable abdominal pain. At the baseline patient is able to carry out some meaningful conversation. Blood pressure running high in the ER. Not able to take his medications. admitted with acute metabolic encephalopathy,DKA hypertensive urgency from not able to take his medications, possible Parkinson's disease flareup, not able to take his medications.-patient had been insulin drip IV fluids. Today-more awake. Did eat breakfast with support. Answering questions. Tired. On liquid diet Review of systems: Was done for constitutional, cardiovascular, GI, pulmonary. relevant finding as above Active Medications Hydrocodone Bitart/Acetaminophen (Pomaria 5-325) 1 each PO TID PRN PRN Reason: Pain Albuterol/Ipratropium (Duoneb 0.5 Mg-3 Mg/3 Ml Soln) 3 ml INHALATION RT-TID PRN PRN Reason: Shortness Of Breath Amantadine HCl (Symmetrel) 100 mg PO DAILY@08 [facility] Last Admin: 04/14/20 07:57 Dose: 100 mg Documented by: Amlodipine Besylate (Norvasc) 2.5 mg PO DAILY@799 [facility] Last Admin: 04/14/20 07:56 Dose: 2.5 mg Documented by: Artificial Tears (Artificial Tear Drops) 1 - 2 drops BOTH EYES TID PRN PRN Reason: RED EYES Aspirin (Aspirin) 81 mg PO DAILY@799 [facility] Last Admin: 04/14/20 07:56 Dose: 81 mg Documented by: Atorvastatin Calcium (Lipitor) 20 mg PO HS@1999 [facility] Last Admin: 04/14/20 20:01 Dose: 20 mg Documented by: Carbidopa/Levodopa (Sinemet 25-250) 1 each PO BID@799,1999 [facility] Last Admin: 04/14/20 20:01 Dose: 1 each Documented by: Citalopram Hydrobromide (Celexa) 20 mg PO DAILY@0800 [facility] Last Admin: 04/14/20 07:57 Dose: 20 mg Documented by: Clonidine HCl (Catapres-Tts 0.1mg Patch) 1 patch TRANSDERM Q7D [facility] Last Admin: 04/12/20 21:14 Dose: 1 patch Documented by: Clotrimazole (Lotrimin Cream) 1 applic TOPICAL HS@1999 [facility] Last Admin: 04/14/20 20:00 Dose: 1 applic Documented by: Cyanocobalamin (Vitamin B-12) 1,000 mcg PO DAILY@08 [facility] Last Admin: 04/14/20 07:56 Dose: 1,000 mcg Documented by: Divalproex Sodium (Depakote Er) 1,000 mg PO BID@ [facility] Last Admin: 04/14/20 20:01 Dose: 1,000 mg Documented by: Enoxaparin Sodium (Lovenox) 40 mg SQ 2100 [facility] Last Admin: 04/14/20 20:37 Dose: 40 mg Documented by: Gabapentin (Neurontin) 300 mg PO BID@ [facility] Last Admin: 04/14/20 20:01 Dose: 300 mg Documented by: Guaifenesin (Robitussin) 200 mg PO Q4H PRN PRN Reason: COUGH & CONGESTION Sodium Chloride (Saline 0.45%) 1,000 mls @ 100 mls/hr IV .Q10H [facility] Last Admin: 04/14/20 16:22 Dose: 100 mls/hr Documented by: Insulin Aspart (Novolog) 0 unit SQ ACHS [facility]; Protocol Last Admin: 04/14/20 20:37 Dose: 3 unit Documented by: Lactic Acid (Ammonium Lactate) 1 applic TOPICAL DAILY@1200 [facility] Last Admin: 04/14/20 07:58 Dose: 1 applic Documented by: Latanoprost (Xalatan 0.005%) 1 drops BOTH EYES HS@1999 [facility] Last Admin: 04/14/20 20:00 Dose: 1 drops Documented by: Metformin HCl (Glucophage) 1,000 mg PO BID@ [facility] Last Admin: 04/14/20 20:01 Dose: 1,000 mg Documented by: Multi-Ingred Cream/Lotion/Oil/Oint (Eucerin Cream) 1 applic TOPICAL HS@1999 [facility] Last Admin: 04/14/20 20:02 Dose: Not Given Documented by: Multivitamins (Theragran) 1 each PO DAILY@799 [facility] Last Admin: 04/14/20 07:56 Dose: 1 each Documented by: Naloxone HCl (Narcan) 0.2 mg IV Q2M PRN PRN Reason: Opioid Reversal Ondansetron HCl (Zofran) 4 mg IVP Q8HR PRN PRN Reason: Nausea And Vomiting Last Admin: 04/13/20 04:05 Dose: 4 mg Documented by: Prochlorperazine Maleate (Compazine) 10 mg PO BID PRN PRN Reason: Nausea Senna/Docusate Sodium (Senokot-S) 2 each PO HS@1999 PRN PRN Reason: Constipation Sertraline HCl (Zoloft) 75 mg PO DAILY@799 [facility] Last Admin: 04/14/20 07:56 Dose: 75 mg Documented by: Sodium Chloride (Deep Sea) 1 spray INTRANASAL BID@ [facility] Last Admin: 04/14/20 20:02 Dose: Not Given Documented by: Tamsulosin HCl (Flomax) 0.4 mg PO DAILY@799 [facility] Last Admin: 04/14/20 07:56 Dose: 0.4 mg Documented by: Physical examination: VITAL SIGNS: 98, 112, 18, 1 4580, 91% room air GENERAL: laying in bed, more awake and communicative today EYES: Pupils equal. Conjunctiva normal. HEENT: External appearance of nose and ears normal, oral cavity dry. NECK: JVD not raised; masses not palpable. HEART: First and second heart sounds are normal; no edema. LUNGS: Respiratory rate normal; clear to auscultation. ABDOMEN: Soft, nontender, liver spleen not palpable, no masses palpable. PSYCH: A bit anxious NEUROLOGICAL: answering questions. EXTREMITIES: Dysmorphic nails, with poor circulation absent dorsalis pedis INVESTIGATIONS, reviewed in the clinical context: Sodium 152 chloride 117 creatinine 1.41 glucose 41 Previous testing White count 13.3 hemoglobin 7.9 platelets 233 potassium 4.2 sodium 148 bun 44 creatinine 1.5 to glucose 508 Lactic acid 3.1 calcium 10.3, anion gap 15 serum acetone positive Assessment: -Acute metabolic encephalopathy possibly from DKA.-improvement - DKA. -corrected -Diabetes mellitus type 2, uncontrolled with hyperglycemia and hypoglycemia -GERD -Hyperlipidemia -Hypertensive urgency from patient unable to bring take his medications -Possible Parkinson disorder with exacerbation from not able to taking his medications -Hypernatremia from free water deficit-new diagnosis-slow to respond -acute kidney injury, possibly ATN Plan: Fluid was changed to half saline. Continue with the same at 100 mL an hour. Discussed with the nurse. Continue with assisted feeding. Aspiration precautions. Repeat BMP in the morning. Diet advanced to regular with, hydrate consistent. Hopefully hypoglycemia should correct with that.
[2020-04-14 22:12] LABS: Hemoglobin A1C 7.6 % (4.0-6.0)
[2020-04-15 01:51] LABS: Glucose,Whole Blood 189 mg/dL (75-99)
[2020-04-15] MEDS: SODIUM CHLORIDE 0.45% 1,000 ML IV SCH ×2 (04:27→11:58)
[2020-04-15 06:52] LABS: Glucose,Whole Blood 182 mg/dL (75-99)
[2020-04-15] MEDS: ASPIRIN 81 MG PO SCH (08:00)
[2020-04-15] MEDS: amLODIPine 5 MG TAB PO SCH (08:00)
[2020-04-15] MEDS: metFORMIN 500 MG TAB PO SCH ×2 (08:01→19:43)
[2020-04-15] MEDS: AMMONIUM LACTATE 12% CREAM 140 GM TUBE TOPICAL SCH (08:05)
[2020-04-15] MEDS: INSULIN ASPART (NovoLOG) 100 UNIT/ML VIAL SQ SCH ×4 (08:05→21:10)
[2020-04-15] MEDS: TAMSULOSIN 0.4 MG CAP.ER.24H PO SCH (08:07)
[2020-04-15] MEDS: GABAPENTIN 300 MG CAP PO SCH ×2 (08:07→19:42)
[2020-04-15] MEDS: MULTIVITAMINS, THERA 1 EACH TAB PO SCH (08:09)
[2020-04-15] MEDS: CITALOPRAM HYDROBROMIDE 20 MG TAB PO SCH (08:10)
[2020-04-15] MEDS: SODIUM CHLORIDE 0.65% NASAL SPRAY 44 ML BTL INTRANASAL SCH ×2 (08:11→19:44)
[2020-04-15] MEDS: CARBIDOPA-LEVODOPA 25-250 MG 1 EACH TAB PO SCH ×2 (08:12→19:42)
[2020-04-15] MEDS: SERTRALINE 25 MG TAB PO SCH (08:13)
[2020-04-15] MEDS: DIVALPROEX ER 500 MG TAB.ER.24H PO SCH ×2 (08:20→19:43)
[2020-04-15 08:30] LABS: African American GFR (CKD) >90 (>60 ml/min/1.73 sqM); Anion Gap 4 mmol/L; Blood Urea Nitrogen 21 mg/dL (9-20); Calcium 8.3 mg/dL (8.4-10.2); Carbon Dioxide 29 mmol/L (22-30); Chloride 108 mmol/L (98-107); Glucose 166 mg/dL (74-99); Non-African American GFR(CKD) 84 (>60 ml/min/1.73 sqM); Sodium 141 mmol/L (137-145)
[2020-04-15 08:50] LABS: Potassium 4.4 mmol/L (3.5-5.1)
[2020-04-15 11:47] LABS: Glucose,Whole Blood 195 mg/dL (75-99)
[2020-04-15] MEDS: LACTATED RINGERS 1,000 ML IV SCH (16:37)
[2020-04-15 17:03] LABS: Glucose,Whole Blood 164 mg/dL (75-99)
--- NOTE | 2020-04-15 17:57 | P.PN ---
Progress Note - Text Progress Note Date: 04/15/20 Chief Complaint: Weakness tiredness History of presenting complaint: This is a 69-year-old patient who follows with visiting physicians Dr. Donovan. No history of diabetes, GERD, hypertension, hyperlipidemia, post head injury. History is mainly obtained from the ER staff including the physician. Himself is not able to give me much of her history. Patient lives at [facility]. In the ER the six sigma black trainer not given the history. Last 2 or 3 days patient been worsening weakness lethargic refusing to take his medications. Poor appetite. He had questionable abdominal pain. At the baseline patient is able to carry out some meaningful conversation. Blood pressure running high in the ER. Not able to take his medications. admitted with acute metabolic encephalopathy,DKA hypertensive urgency from not able to take his medications, possible Parkinson's disease flareup, not able to take his medications.-patient had been insulin drip IV fluids. Patient became hypernatremic. Fluids were changed. Today-doing better. More awake. Eating about 25% of his meals. Communicating. Review of systems: Was done for constitutional, cardiovascular, GI, pulmonary. relevant finding as above Active Medications Hydrocodone Bitart/Acetaminophen (Calhan 5-325) 1 each PO TID PRN PRN Reason: Pain Albuterol/Ipratropium (Duoneb 0.5 Mg-3 Mg/3 Ml Soln) 3 ml INHALATION RT-TID PRN PRN Reason: Shortness Of Breath Amantadine HCl (Symmetrel) 100 mg PO DAILY@0800 [facility] Last Admin: 04/15/20 08:12 Dose: 100 mg Documented by: Amlodipine Besylate (Norvasc) 5 mg PO DAILY [facility] Last Admin: 04/15/20 08:00 Dose: 5 mg Documented by: Artificial Tears (Artificial Tear Drops) 1 - 2 drops BOTH EYES TID PRN PRN Reason: RED EYES Aspirin (Aspirin) 81 mg PO DAILY@0800 [facility] Last Admin: 04/15/20 08:00 Dose: 81 mg Documented by: Atorvastatin Calcium (Lipitor) 20 mg PO HS@1999 [facility] Last Admin: 04/14/20 20:01 Dose: 20 mg Documented by: Carbidopa/Levodopa (Sinemet 25-250) 1 each PO BID@799,1999 [facility] Last Admin: 04/15/20 08:12 Dose: 1 each Documented by: Citalopram Hydrobromide (Celexa) 20 mg PO DAILY@08 [facility] Last Admin: 04/15/20 08:10 Dose: 20 mg Documented by: Clonidine HCl (Catapres-Tts 0.1mg Patch) 1 patch TRANSDERM Q7D [facility] Last Admin: 04/12/20 21:14 Dose: 1 patch Documented by: Clotrimazole (Lotrimin Cream) 1 applic TOPICAL HS@1999 [facility] Last Admin: 04/14/20 20:00 Dose: 1 applic Documented by: Cyanocobalamin (Vitamin B-12) 1,000 mcg PO DAILY@799 [facility] Last Admin: 04/14/20 07:56 Dose: 1,000 mcg Documented by: Divalproex Sodium (Depakote Er) 1,000 mg PO BID@ [facility] Last Admin: 04/15/20 08:20 Dose: 1,000 mg Documented by: Enoxaparin Sodium (Lovenox) 40 mg SQ 2100 [facility] Last Admin: 04/14/20 20:37 Dose: 40 mg Documented by: Gabapentin (Neurontin) 300 mg PO BID@ [facility] Last Admin: 04/15/20 08:07 Dose: 300 mg Documented by: Guaifenesin (Robitussin) 200 mg PO Q4H PRN PRN Reason: COUGH & CONGESTION Lactated Ringer's (Lactated Ringers) 1,000 mls @ 50 mls/hr IV .Q20H [facility] Last Admin: 04/15/20 16:37 Dose: 50 mls/hr Documented by: Insulin Aspart (Novolog) 0 unit SQ ACHS [facility]; Protocol Last Admin: 04/15/20 17:23 Dose: Not Given Documented by: Lactic Acid (Ammonium Lactate) 1 applic TOPICAL DAILY@1200 [facility] Last Admin: 04/15/20 08:05 Dose: 1 applic Documented by: Latanoprost (Xalatan 0.005%) 1 drops BOTH EYES HS@1999 [facility] Last Admin: 04/14/20 20:00 Dose: 1 drops Documented by: Metformin HCl (Glucophage) 1,000 mg PO BID@ [facility] Last Admin: 04/15/20 08:01 Dose: 1,000 mg Documented by: Multi-Ingred Cream/Lotion/Oil/Oint (Eucerin Cream) 1 applic TOPICAL HS@1999 [facility] Last Admin: 04/14/20 20:02 Dose: Not Given Documented by: Multivitamins (Theragran) 1 each PO DAILY@799 [facility] Last Admin: 04/15/20 08:09 Dose: 1 each Documented by: Naloxone HCl (Narcan) 0.2 mg IV Q2M PRN PRN Reason: Opioid Reversal Ondansetron HCl (Zofran) 4 mg IVP Q8HR PRN PRN Reason: Nausea And Vomiting Last Admin: 04/13/20 04:05 Dose: 4 mg Documented by: Prochlorperazine Maleate (Compazine) 10 mg PO BID PRN PRN Reason: Nausea Senna/Docusate Sodium (Senokot-S) 2 each PO HS@1999 PRN PRN Reason: Constipation Sertraline HCl (Zoloft) 75 mg PO DAILY@799 [facility] Last Admin: 04/15/20 08:13 Dose: 75 mg Documented by: Sodium Chloride (Deep Sea) 1 spray INTRANASAL BID@ [facility] Last Admin: 04/15/20 08:11 Dose: 1 spray Documented by: Tamsulosin HCl (Flomax) 0.4 mg PO DAILY@799 [facility] Last Admin: 04/15/20 08:07 Dose: 0.4 mg Documented by: Physical examination: VITAL SIGNS: 98.4, 85, 20, 114/62, 94% room air GENERAL: laying in bed, awake EYES: Pupils equal. Conjunctiva normal. HEENT: External appearance of nose and ears normal, oral cavity dry. NECK: JVD not raised; masses not palpable. HEART: First and second heart sounds are normal; no edema. LUNGS: Respiratory rate normal; clear to auscultation. ABDOMEN: Soft, nontender, liver spleen not palpable, no masses palpable. PSYCH: A bit anxious NEUROLOGICAL: answering questions. Tremors EXTREMITIES: Dysmorphic nails, with poor circulation absent dorsalis pedis INVESTIGATIONS, reviewed in the clinical context: Sodium 141 potassium 4.4 creatinine 0.93 Previous testing White count 13.3 hemoglobin 7.9 platelets 233 potassium 4.2 sodium 148 bun 44 creatinine 1.5 to glucose 508 Lactic acid 3.1 calcium 10.3, anion gap 15 serum acetone positive Sodium 152 chloride 117 creatinine 1.41 glucose 41 Assessment: -Acute metabolic encephalopathy possibly from DKA.-improvement - DKA. -corrected -Diabetes mellitus type 2, uncontrolled with hyperglycemia and hypoglycemia -GERD -Hyperlipidemia -Hypertensive urgency from patient unable to bring take his medications -Parkinson disease with exacerbation from not able to taking his medications- improving -Hypernatremia from free water deficit-new -corrected -acute kidney injury, possibly ATN-corrected Plan: IV fluids cutback. Changed to Dilaudid. We will change clonidine to Lopressor..
[2020-04-15] MEDS: ATORVASTATIN 20 MG TAB PO SCH (19:42)
[2020-04-15] MEDS: LATANOPROST 0.005% OPHTH DROPS 2.5 ML BTL BOTH EYES SCH (19:43)
[2020-04-15] MEDS: CLOTRIMAZOLE 1% CREAM 15 GM TUBE TOPICAL SCH (19:43)
[2020-04-15] MEDS: MINERAL OIL-WHITE PETROLATUM 120 GM JAR TOPICAL SCH (19:45)
[2020-04-15 20:52] LABS: Glucose,Whole Blood 184 mg/dL (75-99)
[2020-04-15] MEDS: ENOXAPARIN 40 MG/0.4 ML SYRINGE SQ SCH (21:09)
[2020-04-15] MEDS: METOPROLOL TARTRATE 50 MG TAB PO SCH (21:09)
[2020-04-16 01:54] LABS: Glucose,Whole Blood 152 mg/dL (75-99)
[2020-04-16 07:05] LABS: Glucose,Whole Blood 158 mg/dL (75-99)
[2020-04-16] MEDS: INSULIN ASPART (NovoLOG) 100 UNIT/ML VIAL SQ SCH ×2 (07:52→12:18)
[2020-04-16] MEDS: CITALOPRAM HYDROBROMIDE 20 MG TAB PO SCH (07:52)
[2020-04-16] MEDS: AMMONIUM LACTATE 12% CREAM 140 GM TUBE TOPICAL SCH (07:53)
[2020-04-16] MEDS: SODIUM CHLORIDE 0.65% NASAL SPRAY 44 ML BTL INTRANASAL SCH (07:53)
[2020-04-16] MEDS: LACTATED RINGERS 1,000 ML IV SCH (07:54)
[2020-04-16] MEDS: METOPROLOL TARTRATE 50 MG TAB PO SCH (07:55)
[2020-04-16] MEDS: amLODIPine 5 MG TAB PO SCH (07:57)
[2020-04-16] MEDS: ASPIRIN 81 MG PO SCH (07:58)
[2020-04-16] MEDS: SERTRALINE 25 MG TAB PO SCH (07:58)
[2020-04-16] MEDS: CYANOCOBALAMIN 500 MCG TAB PO SCH (08:01)
[2020-04-16] MEDS: CARBIDOPA-LEVODOPA 25-250 MG 1 EACH TAB PO SCH (08:04)
[2020-04-16] MEDS: GABAPENTIN 300 MG CAP PO SCH (08:05)
[2020-04-16] MEDS: TAMSULOSIN 0.4 MG CAP.ER.24H PO SCH (08:07)
[2020-04-16] MEDS: DIVALPROEX ER 500 MG TAB.ER.24H PO SCH (08:09)
[2020-04-16] MEDS: metFORMIN 500 MG TAB PO SCH (08:10)
[2020-04-16] MEDS: MULTIVITAMINS, THERA 1 EACH TAB PO SCH (08:11)
[2020-04-16 09:12] VITALS: BP 151/83; PULSE 69; RESP 18; TEMP 98.6
[2020-04-16 12:50] LABS: Glucose,Whole Blood 150 mg/dL (75-99)
--- NOTE | 2020-04-16 23:39 | P.DS ---
Providers Date of admission: 04/12/20 17:59 Expected date of discharge: 04/16/20 Attending physician: Rajiv Veloz Consults: 04/12/20 21:44 Consult Physician Routine Consulting Provider: Jake Ribeiro Consult Reason/Comments: Possible flareup Parkinson Do you want consulting provider notified?: Yes [facility] care [facility] Course: Chief Complaint: Weakness tiredness History of presenting complaint: This is a 69-year-old patient who follows with visiting physicians Dr. Salazar. No history of diabetes, GERD, hypertension, hyperlipidemia, post head injury. History is mainly obtained from the ER staff including the physician. Himself is not able to give me much of her history. Patient lives at [facility]. In the ER the welder metal fab not given the history. Last 2 or 3 days patient been worsening weakness lethargic refusing to take his medications. Poor appetite. He had questionable abdominal pain. At the baseline patient is able to carry out some meaningful conversation. Blood pressure running high in the ER. Not able to take his medications. admitted with acute metabolic encephalopathy,DKA hypertensive urgency from not able to take his medications, possible Parkinson's disease flareup, not able to take his medications.-patient had been insulin drip IV fluids. Patient became hypernatremic. Fluids were changed. Today-awake communicating. Comfortable. Parkinson tremor. Eating some.dose of Glucotrol dose decreased. Lasix discontinued.Lopressor and Norvasc added.insulin discontinued for now. Discussion and discharge planning more than 35 minutes consultation: Dr. Bedolla from neurology Physical examination: VITAL SIGNS: 98.6, 69, 18, 151/83, 94% room air GENERAL: laying in bed, awake awake EYES: Pupils equal. Conjunctiva normal. HEENT: External appearance of nose and ears normal, oral cavity dry. NECK: JVD not raised; masses not palpable. HEART: First and second heart sounds are normal; no edema. LUNGS: Respiratory rate normal; clear to auscultation. ABDOMEN: Soft, nontender, liver spleen not palpable, no masses palpable. PSYCH: A bit anxious NEUROLOGICAL: answering questions. Tremors EXTREMITIES: Dysmorphic nails, with poor circulation absent dorsalis pedis INVESTIGATIONS, reviewed in the clinical context: Sodium 141 potassium 4.4 creatinine 0.93 Previous testing White count 13.3 hemoglobin 7.9 platelets 233 potassium 4.2 sodium 148 bun 44 creatinine 1.5 to glucose 508 Lactic acid 3.1 calcium 10.3, anion gap 15 serum acetone positive Sodium 152 chloride 117 creatinine 1.41 glucose 41 Assessment: -Acute metabolic encephalopathy possibly from DKA.-improved - DKA. -corrected -Diabetes mellitus type 2, uncontrolled with hyperglycemia and hypoglycemia -GERD -Hyperlipidemia -Hypertensive urgency from patient unable to bring take his medications -Parkinson disease with exacerbation from not able to taking his medications-improving -Hypernatremia from free water deficit-new -corrected -acute kidney injury, possibly ATN-corrected disposition: Assisted-living Patient Condition at Discharge: Stable Plan - Discharge Summary Discharge Rx Participant: Yes New Discharge Prescriptions: New glipiZIDE [Glucotrol] 5 mg PO AC-BRKFST #30 tab Metoprolol Tartrate [Lopressor] 50 mg PO BID #60 tab amLODIPine [Norvasc] 5 mg PO DAILY #30 tab Continue HYDROcodone/APAP 5-325MG [[place] 5-325] 1 tab PO TID@0800,1400,2000 Gabapentin [Neurontin] 300 mg PO BID@0800,2000 Furosemide [Lasix] 20 mg PO DAILY@1700 Divalproex ER [Depakote ER] 1,000 mg PO BID@0800,2000 Clotrimazole Topical Soln [Mycelex Topical Soln] 2 drops TOPICAL HS@2000 Citalopram Hydrobromide [CeleXA] 20 mg PO DAILY@0800 Aspirin EC [Ecotrin Low Dose] 81 mg PO DAILY@0800 Atorvastatin Calcium [Lipitor] 20 mg PO HS@2000 Ammonium Lactate Cream [Lac-Hydrin 12% Cream] 1 applic TOPICAL DAILY@1200 amantadine HCL [Amantadine] 100 mg PO DAILY@0800 Eucerin Cream 1 applic TOPICAL HS@2000 Prochlorperazine [Compazine] 10 mg PO BID PRN MDD 30-45MIN PRIOR TO MEALS PRN Reason: Nausea Artificial Tears-Hypromellose [Artificial Tear Drops] 1 - 2 drops BOTH EYES TID PRN PRN Reason: RED EYES Naproxen [Naprosyn] 500 mg PO BID PRN PRN Reason: Pain Ipratropium-Albuterol Nebulize [Duoneb 0.5 mg-3 mg/3 ml Soln] 3 ml INHALATION RT-TID PRN PRN Reason: Shortness Of Breath HYDROcodone/APAP 5-325MG [[place] 5-325] 1 tab PO TID PRN PRN Reason: Pain Cyanocobalamin (Vitamin B-12) [Vitamin B-12] 1,000 mcg PO DAILY@0800 Tamsulosin HCl [Flomax] 0.4 mg PO DAILY@0800 Sertraline HCl [Zoloft] 75 mg PO DAILY@0800 Sennosides/Docusate Sodium [Senna Plus 8.6-50 mg Softgel] 2 tab PO HS@1999 PRN PRN Reason: Constipation Sodium Chloride [Saline Nasal [place]] 1 spray EA NOSTRIL BID@08,1999 Pantoprazole [Protonix] 40 mg PO DAILY@0800 metFORMIN HCL [Glucophage] 1,000 mg PO BID@08,1999 Multivitamins, Thera [Multivitamin (formulary)] 1 tab PO DAILY@0800 Latanoprost/Pf [Latanoprost 0.005% Eye Drop] 1 drop BOTH EYES HS@1999 guaiFENesin [guaiFENesin Oral Solution] 200 mg PO Q4H PRN PRN Reason: COUGH & CONGESTION Carbidopa/Levodopa [Carbidopa-Levo 25-250 mg Odt] 1 tab SUBLINGUAL BID@08,1999 Changed LORazepam [Ativan] 0.5 mg PO TID@0800,1400,1999 PRN #0 PRN Reason: Anxiety Discontinued glipiZIDE XL [Glucotrol Xl] 10 mg PO HS@1999 Furosemide [Lasix] 40 mg PO DAILY@0800 amLODIPine [Norvasc] 2.5 mg PO DAILY@0800 Insulin Aspart Protam & Aspart [NovoLOG MIX 70-30 Flexpen] 10 unit SQ BID@799,1999 Loratadine [Claritin] 10 mg PO HS@1999 Discharge Medication List Ammonium Lactate Cream [Lac-Hydrin 12% Cream] 1 applic TOPICAL DAILY@1200 04/12/20 [History] Artificial Tears-Hypromellose [Artificial Tear Drops] 1 - 2 drops BOTH EYES TID PRN 04/12/20 [History] Aspirin EC [Ecotrin Low Dose] 81 mg PO DAILY@0800 04/12/20 [History] Atorvastatin Calcium [Lipitor] 20 mg PO HS@199904/12/20 [History] Carbidopa/Levodopa [Carbidopa-Levo 25-250 mg Odt] 1 tab SUBLINGUAL BID@08,199904/12/20 [History] Citalopram Hydrobromide [CeleXA] 20 mg PO DAILY@79904/12/20 [History] Clotrimazole Topical Soln [Mycelex Topical Soln] 2 drops TOPICAL HS@199904/12/20 [History] Cyanocobalamin (Vitamin B-12) [Vitamin B-12] 1,000 mcg PO DAILY@79904/12/20 [History] Divalproex ER [Depakote ER] 1,000 mg PO BID@08,199904/12/20 [History] Eucerin Cream 1 applic TOPICAL HS@199904/12/20 [History] Furosemide [Lasix] 20 mg PO DAILY@169904/12/20 [History] Gabapentin [Neurontin] 300 mg PO BID@08,199904/12/20 [History] HYDROcodone/APAP 5-325MG [[place] 5-325] 1 tab PO TID PRN 04/12/20 [History] HYDROcodone/APAP 5-325MG [[place] 5-325] 1 tab PO TID@0800,1400,199904/12/20 [History] Ipratropium-Albuterol Nebulize [Duoneb 0.5 mg-3 mg/3 ml Soln] 3 ml INHALATION RT-TID PRN 04/12/20 [History] Latanoprost/Pf [Latanoprost 0.005% Eye Drop] 1 drop BOTH EYES HS@199904/12/20 [History] Multivitamins, Thera [Multivitamin (formulary)] 1 tab PO DAILY@79904/12/20 [History] Naproxen [Naprosyn] 500 mg PO BID PRN 04/12/20 [History] Pantoprazole [Protonix] 40 mg PO DAILY@79904/12/20 [History] Prochlorperazine [Compazine] 10 mg PO BID PRN MDD 30-45MIN PRIOR TO MEALS 04/12/20 [History] Sennosides/Docusate Sodium [Senna Plus 8.6-50 mg Softgel] 2 tab PO HS@1999 PRN 04/12/20 [History] Sertraline HCl [Zoloft] 75 mg PO DAILY@79904/12/20 [History] Sodium Chloride [Saline Nasal [place]] 1 spray EA NOSTRIL BID@799,199904/12/20 [History] Tamsulosin HCl [Flomax] 0.4 mg PO DAILY@79904/12/20 [History] amantadine HCL [Amantadine] 100 mg PO DAILY@79904/12/20 [History] guaiFENesin [guaiFENesin Oral Solution] 200 mg PO Q4H PRN 04/12/20 [History] metFORMIN HCL [Glucophage] 1,000 mg PO BID@799,199904/12/20 [History] LORazepam [Ativan] 0.5 mg PO TID@0800,1399,1999 PRN #0 04/16/20 [Rx] Metoprolol Tartrate [Lopressor] 50 mg PO BID #60 tab 04/16/20 [Rx] amLODIPine [Norvasc] 5 mg PO DAILY #30 tab 04/16/20 [Rx] glipiZIDE [Glucotrol] 5 mg PO AC-BRKFST #30 tab 04/16/20 [Rx] Follow up Appointment(s)/Referral(s): Jay Salazar MD [Primary Care Provider] - 1-2 days Patient Instructions/Handouts: Dehydration (DC), Weakness (DC) Activity/Diet/Wound Care/Special Instructions: Pull Edwards out at 1:30pm on 04/16/2020. Please watch for patient to void. Call Sara Krueger at discharge to arrange transportation for patient: [phone]
--- NOTE | 2020-04-19 14:07 | CDI ---
Documentation Clarification Form Date: 04/19/20 From: Erika Olmos Phone: If you have a question about this query, please contact Brandee Ness, Map Clerk at [phone] between 8am and 5pm. Admit Date: 04/12/20 Discharge Date:04/16/20 Patient Name: Twin Bui Visit Number: [id number] ATTENTION: The Clinical Documentation Specialists (CDI) and [facility] Coding Staff appreciate your assistance in clarifying documentation. Please respond to the clarification below the line at the bottom and electronically sign. The CDI & [facility] Coding staff will review the response and follow-up if needed. Please note: Queries are made part of the Legal Health Record. If you have any questions, please contact the author of this message via ITS. Dear Dr. Veloz Wound on the lower extremity for the last 6 months is documented in the consult note and in the consult progress note on 04/14.. Diabetic ulcer to the right foot is documented in the nursing wound assessment. Bottom right foot is documented on the color photo form. Patient history/risk factors: DM, hypertension Clinical Indicators: slight odor of wound Labs: WBC 13.3, Glucose 508, sodium 152, lactic acid 3.1 Wound assessment: Per nursing wound assessment documentation, no drainage and slight odor Treatment: Medication: No meds, no dressings In your professional opinion, can the etiology and severity of the wound be further specified as one of the following? 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
== END 2020-04-16 14:59 | disposition home or self-care (01) | DRG 637 ==
LOC: EDSEX → EC 14:24 → EEVIPCON 17:59 → 4SSUR 17:59
PROVIDERS: ADMIT Hospitalist; ATTEND Hospitalist
DX: E11.10 Type 2 diabetes mellitus with ketoacidosis without coma (principal); G93.41 Metabolic encephalopathy; N17.0 Acute kidney failure with tubular necrosis; E87.0 Hyperosmolality and hypernatremia; E11.649 Type 2 diabetes mellitus with hypoglycemia without coma; E11.621 Type 2 diabetes mellitus with foot ulcer; L97.512 Non-pressure chronic ulcer of other part of right foot with fat layer exposed; G20 Parkinson's disease; I11.9 Hypertensive heart disease without heart failure; Z89.421 Acquired absence of other right toe(s); Z79.4 Long term (current) use of insulin; R40.2362 Coma scale, best motor response, obeys commands, at arrival to emergency department; R40.2142 Coma scale, eyes open, spontaneous, at arrival to emergency department; R40.2242 Coma scale, best verbal response, confused conversation, at arrival to emergency department; E78.5 Hyperlipidemia, unspecified; E86.0 Dehydration; D72.829 Elevated white blood cell count, unspecified; I16.0 Hypertensive urgency; K21.9 Gastro-esophageal reflux disease without esophagitis; R32 Unspecified urinary incontinence; H91.90 Unspecified hearing loss, unspecified ear; Z79.82 Long term (current) use of aspirin; Z79.899 Other long term (current) drug therapy; Z88.1 Allergy status to other antibiotic agents; Z87.820 Personal history of traumatic brain injury
CPT/HCPCS: 36415; 74018; 80048; 80053; 81001; 82009; 83036; 83605; 83690; 83735; 85025; 87040; 93005; 96361; 96374; 99285

== ENCOUNTER 2020-04-29 18:19 | Emergency (ER) | payer MEDICARE, OTHER ==
[2020-04-29 18:27] VITALS: TEMP 98
[2020-04-29] MEDS ORDERED: PANTOPRAZOLE 40 MG/10 ML VIAL IVP STA (18:33)
--- NOTE | 2020-04-29 18:35 | ED ---
General Adult HPI - General Chief complaint: Recheck/Abnormal Lab/Rx Stated complaint: Recheck Time Seen by Provider: 04/29/20 18:22 Source: EMS Mode of arrival: EMS Limitations: no limitations - History of Present Illness Initial comments: Dictation was produced using [employer] dictation software. please excuse any grammatical, word or spelling errors. This patient was cared for during a federal and state declared state of emergency secondary to Covid 19 Chief Complaint: 70-year-old male brought to the emergency department by home ca re worker for coffee-ground emesis, episode of tachycardia and hypoxia. History of Present Illness: An is a 70-year-old male he lives at [facility]. Patient allegedly had an 30 minute episode where he was having a heart rate in the 150s with oxygens in the mid 80s. He also had one episode of was alleged coffee-ground emesis. Patient is a poor started at this time. He does not know why he is here. He has no complaints. Home care worker at bedside reports that this is his baseline. He does appear to be well. He was recently admitted for hyponatremia. The ROS documented in this emergency department record has been reviewed and confirmed by me. Those systems with pertinent positive or negative responses have been documented in the HPI. All other systems are other negative and/or noncontributory. PHYSICAL EXAM: General Impression: Alert and oriented x2/4, not in acute distress HEENT: Normocephalic atraumatic, extra-ocular movements intact, pupils equal and reactive to light bilaterally, mucous membranes moist. Cardiovascular: Heart regular rate and rhythm Chest: Able to complete full sentences, no retractions, no tachypnea Abdomen: abdomen soft, non-tender, non-distended, no organomegaly Musculoskeletal: Pulses present and equal in all extremities, no peripheral edema Motor: no focal deficits noted Neurological: CN II-XII grossly intact, no focal motor or sensory deficits noted Skin: Intact with no visualized rashes Psych: Normal affect and mood Rectal exam: No melanotic stools, no bright red blood ED course: 70 y Old male presents with episode of tachycardia, hypoxia and coffee-ground emesis as upon arrival are within acceptable limits. Patient's well-appearing at bedside. Does not appear to be in acute distress. His vital signs are stable. He is not hypoxic on room air. Laboratory evaluation obtained. CBC, metabolic panel on so-called blood are all within acceptable limits. Patient is well-appearing at bedside. Patient will be discharged. Is told to follow-up with his primary care physician. EKG interpretation: Ventricular rate D, sinus bradycardia,. Interval to 60, QRS 108, QTc 461. No UT prolongation, no QTC prolongation, no ST or T-wave changes noted. EKG compared to April 12 2020 showing no changes. Overall, this EKG is unremarkable - Related Data Home Medications Medication Instructions Recorded Confirmed Ammonium Lactate Cream [Lac-Hydrin 1 applic TOPICAL DAILY@1200 04/12/20 04/12/20 12% Cream] Artificial Tears-Hypromellose 1 - 2 drops BOTH EYES TID PRN 04/12/20 04/12/20 [Artificial Tear Drops] Aspirin EC [Ecotrin Low Dose] 81 mg PO DAILY@79904/12/20 04/12/20 Atorvastatin Calcium [Lipitor] 20 mg PO HS@199904/12/20 04/12/20 Carbidopa/Levodopa [Carbidopa-Levo 1 tab SUBLINGUAL BID@08,199904/12/20 04/12/20 25-250 mg Odt] Citalopram Hydrobromide [CeleXA] 20 mg PO DAILY@79904/12/20 04/12/20 Clotrimazole Topical Soln [Mycelex 2 drops TOPICAL HS@199904/12/20 04/12/20 Topical Soln] Cyanocobalamin (Vitamin B-12) 1,000 mcg PO DAILY@79904/12/20 04/12/20 [Vitamin B-12] Divalproex ER [Depakote ER] 1,000 mg PO BID@08,199904/12/20 04/12/20 Eucerin Cream 1 applic TOPICAL HS@199904/12/20 04/12/20 Furosemide [Lasix] 20 mg PO DAILY@1700 04/12/20 04/12/20 Gabapentin [Neurontin] 300 mg PO BID@0800,199904/12/20 04/12/20 HYDROcodone/APAP 5-325MG [[place] 1 tab PO TID PRN 04/12/20 04/12/20 5-325] HYDROcodone/APAP 5-325MG [[place] 1 tab PO TID@08,1400,199904/12/20 04/12/20 5-325] Ipratropium-Albuterol Nebulize 3 ml INHALATION RT-TID PRN 04/12/20 04/12/20 [Duoneb 0.5 mg-3 mg/3 ml Soln] Latanoprost/Pf [Latanoprost 0.005% 1 drop BOTH EYES HS@199904/12/20 04/12/20 Eye Drop] Multivitamins, Thera [Multivitamin 1 tab PO DAILY@79904/12/20 04/12/20 (formulary)] Naproxen [Naprosyn] 500 mg PO BID PRN 04/12/20 04/12/20 Pantoprazole [Protonix] 40 mg PO DAILY@79904/12/20 04/12/20 Prochlorperazine [Compazine] 10 mg PO BID PRN MDD 30-45MIN 04/12/20 04/12/20 PRIOR TO MEALS Sennosides/Docusate Sodium [Senna 2 tab PO HS@1999 PRN 04/12/20 04/12/20 Plus 8.6-50 mg Softgel] Sertraline HCl [Zoloft] 75 mg PO DAILY@79904/12/20 04/12/20 Sodium Chloride [Saline Nasal 1 spray EA NOSTRIL BID@799,199904/12/20 04/12/20 [place]] Tamsulosin HCl [Flomax] 0.4 mg PO DAILY@79904/12/20 04/12/20 amantadine HCL [Amantadine] 100 mg PO DAILY@79904/12/20 04/12/20 guaiFENesin [guaiFENesin Oral 200 mg PO Q4H PRN 04/12/20 04/12/20 Solution] metFORMIN HCL [Glucophage] 1,000 mg PO BID@799,199904/12/20 04/12/20 Previous Rx's Medication Instructions Recorded LORazepam [Ativan] 0.5 mg PO TID@0800,1400,1999 PRN #0 04/16/20 Metoprolol Tartrate [Lopressor] 50 mg PO BID #60 tab 04/16/20 amLODIPine [Norvasc] 5 mg PO DAILY #30 tab 04/16/20 glipiZIDE [Glucotrol] 5 mg PO AC-BRKFST #30 tab 04/16/20 Allergies Allergy/AdvReac Type Severity Reaction Status Date / Time piperacillin [From Zosyn] Allergy Nausea & Verified 04/12/20 16:36 Vomiting tazobactam [From Zosyn] Allergy Nausea & Verified 04/12/20 16:36 Vomiting Review of Systems ROS Statement: Those systems with pertinent positive or pertinent negative responses have been documented in the HPI. ROS Other: All systems not noted in ROS Statement are negative. Past Medical History Past Medical History: Diabetes Mellitus, GERD/Reflux, Hyperlipidemia, Hypertension Additional Past Medical History / Comment(s): closed head injury, History of Any Multi-Drug Resistant Organisms: None Reported Past Surgical History: Unable to Obtain Past Anesthesia/Blood Transfusion Reactions: No Reported Reaction Smoking Status: Never smoker Past Alcohol Use History: None Reported Past Drug Use History: None Reported - Past Family History Father History Unknown: Yes General Exam Limitations: no limitations Course Vital Signs 04/29/20 04/29/20 18:20 18:48 Temperature 98.0 F Pulse Rate 58 L 60 Respiratory 18 16 Rate Blood Pressure 103/65 100/59 O2 Sat by Pulse 98 100 Oximetry Medical Decision Making - Lab Data Result diagrams: 04/29/20 18:43 04/29/20 18:43 Lab Results 04/29/20 04/29/20 04/29/20 Range/Units 18:43 18:43 18:43 WBC 9.2 (3.8-10.6) k/uL RBC 4.71 (4.30-5.90) m/uL Hgb 14.6 D (13.0-17.5) gm/dL Hct 43.7 (39.0-53.0) % MCV 92.8 (80.0-100.0) fL MCH 31.0 (25.0-35.0) pg MCHC 33.4 (31.0-37.0) g/dL RDW 14.9 (11.5-15.5) % Plt Count 336 (150-450) k/uL Neutrophils % 51 % Lymphocytes % 39 % Monocytes % 5 % Eosinophils % 3 % Basophils % 0 % Neutrophils # 4.7 (1.3-7.7) k/uL Lymphocytes # 3.6 (1.0-4.8) k/uL Monocytes # 0.5 (0-1.0) k/uL Eosinophils # 0.2 (0-0.7) k/uL Basophils # 0.0 (0-0.2) k/uL Sodium 130 L (137-145) mmol/L Potassium 3.4 L (3.5-5.1) mmol/L Chloride 87 L (98-107) mmol/L Carbon Dioxide 33 H (22-30) mmol/L Anion Gap 10 mmol/L BUN 20 (9-20) mg/dL Creatinine 1.34 H (0.66-1.25) mg/dL Est GFR (CKD-EPI)AfAm 62 (>60 ml/min/1.73 sqM) Est GFR (CKD-EPI)NonAf 54 (>60 ml/min/1.73 sqM) Glucose 162 H (74-99) mg/dL Calcium 9.1 (8.4-10.2) mg/dL Stool Occult Blood Negative (Negative) Disposition Clinical Impression: Hypoxia, Tachycardia, GI bleed Disposition: HOME SELF-CARE Condition: Good Instructions (If sedation given, give patient instructions): Heart Palpitations (ED), Gastrointestinal Bleeding (ED) Additional Instructions: Follow-up with primary care physician. Is patient prescribed a controlled substance at d/c from ED?: No Referrals: Jay Salazar MD [Primary Care Provider] - 1-2 days Time of Disposition: 20:02
[2020-04-29 18:59] LABS: Basophils % (A) 0 %; Eosinophils # (A) 0.2 k/uL (0-0.7); Eosinophils % (A) 3 %; HCT 43.7 % (39.0-53.0); Lymphocytes # (A) 3.6 k/uL (1.0-4.8); Lymphocytes % (A) 39 %; MCHC 33.4 g/dL (31.0-37.0); MCV 92.8 fL (80.0-100.0); Mean Platelet Volume 8.1; Monocytes # (A) 0.5 k/uL (0-1.0); Monocytes % (A) 5 %; Neutrophils # (A) 4.7 k/uL (1.3-7.7); Neutrophils % (A) 51 %; Platelet Count 336 k/uL (150-450); RBC 4.71 m/uL (4.30-5.90); RDW 14.9 % (11.5-15.5); WBC 9.2 k/uL (3.8-10.6)
[2020-04-29 19:06] LABS: HGB 14.6 gm/dL (13.0-17.5)
[2020-04-29 19:16] LABS: Calcium 9.1 mg/dL (8.4-10.2); Potassium 3.4 mmol/L (3.5-5.1)
[2020-04-29 20:38] VITALS: BP 110/64; PULSE 57; RESP 18
== END 2020-04-29 21:19 | disposition home or self-care (01) ==
LOC: EC 18:19
DX: K92.2 Gastrointestinal hemorrhage, unspecified (principal); R00.0 Tachycardia, unspecified; R09.02 Hypoxemia; E78.5 Hyperlipidemia, unspecified; K21.9 Gastro-esophageal reflux disease without esophagitis; I10 Essential (primary) hypertension; E11.9 Type 2 diabetes mellitus without complications; Z79.84 Long term (current) use of oral hypoglycemic drugs; Z79.899 Other long term (current) drug therapy; Z88.8 Allergy status to other drugs, medicaments and biological substances
CPT/HCPCS: 36415; 93005; 80048; 85025; 82272; 99285; 96374; C9113